=== PATIENT | male | born 1970 | race Caucasian/White ===

== ENCOUNTER 2022-06-05 01:44 | Inpatient (IN) | payer BC, OTHER ==
[~2022-06-05 01:44] MED LIST: Sodium Chloride 0.9% 1,000 ML IV ONE
[2022-06-05] MEDS ORDERED: LORazepam 2 MG/ML SDV IVPUSH ONE ×2 (01:53→03:37)
[2022-06-05] MEDS ORDERED: LORazepam 2 MG/ML SDV ONE ×2 (01:54→05:46)
[2022-06-05] MEDS ORDERED: Sodium Chloride 0.9% 10 ML Syringe FLUSH PRN ×2 (01:57→11:14)
[2022-06-05] MEDS ORDERED: Sodium Chloride 0.9% 1,000 ML IV SCH ×2 (02:00→08:15)
[2022-06-05] MEDS ORDERED: diphenhydrAMINE 50 MG/ML SDV IVPUSH ONE (02:47)
[2022-06-05 02:49] LABS: ESTIMATED GFR 45 mL/min (>60)
[2022-06-05] MEDS ORDERED: diphenhydrAMINE 50 MG/ML SDV ONE (02:49)
[2022-06-05 03:01] LABS: ACETAMINOPHEN 0 ug/mL (10-30)
[2022-06-05] MEDS ORDERED: Lactated Ringers 1,000 ML IV SCH (03:30)
[2022-06-05] MEDS ORDERED: OLANZapine 10 MG Vial IM ONE (03:37)
[2022-06-05] MEDS ORDERED: Polyethylene Glycol 3350 Powder 17 GM Packet PO PRN (11:14)
[2022-06-05] MEDS ORDERED: Docusate Sodium 100 MG Cap PO PRN (11:14)
[2022-06-05] MEDS ORDERED: Ondansetron 4 MG/2 ML SDV IV PRN (11:14)
[2022-06-05] MEDS ORDERED: Ondansetron 4 MG Tab.DIS PO PRN (11:14)
[2022-06-05] MEDS: Heparin Sodium 5,000 Units/ML Vial SUBCUT SCH ×2 (14:24→19:03)
[2022-06-05] MEDS: Sodium Chloride 0.9% 1,000 ML IV SCH ×2 (14:25→21:01)
[2022-06-05] MEDS ORDERED: LORazepam 2 MG/ML SDV IVPUSH PRN (18:14)
[2022-06-06] MEDS: Heparin Sodium 5,000 Units/ML Vial SUBCUT SCH ×2 (03:15→11:25)
[2022-06-06] MEDS: Sodium Chloride 0.9% 1,000 ML IV SCH (03:16)
== END 2022-06-06 16:00 | disposition home or self-care (01) | DRG 812 ==
LOC: JD.ED 01:44 → JD.ICU 11:14 → JD.MS 16:00
PROVIDERS: ADMIT Hospitalist; ATTEND Hospitalist
DX: T44.0X1A Poisoning by anticholinesterase agents, accidental (unintentional), initial encounter (principal); T43.291A Poisoning by other antidepressants, accidental (unintentional), initial encounter; G92.9 Unspecified toxic encephalopathy; N17.9 Acute kidney failure, unspecified; F12.90 Cannabis use, unspecified, uncomplicated; E87.20 Acidosis, unspecified; F41.9 Anxiety disorder, unspecified; F32.A Depression, unspecified; F11.10 Opioid abuse, uncomplicated; Z79.899 Other long term (current) drug therapy
CPT/HCPCS: 36415; 70450; 70450-26; 71045; 71045-26; 80053; 80143; 80179; 80306; 80307; 81001; 83605; 83735; 84443; 84484; 85025; 86140; 93005; 93010; 94760; 96361; 96372; 96374; 96375; 99285; 99285-25; J1200; J1644; J2060; J2405; J3490; J7030; J7120